=== PATIENT | female | born 1980 | race Caucasian/White ===

== ENCOUNTER 2018-12-31 18:22 | Inpatient (IN) | payer MEDICAID ==
[2018-12-31 21:56] LABS: ADD MAN DIFF? NO
[2018-12-31 21:59] LABS: BASOPHILS % 0.4 % (0.0-2.0); EOSINOPHILS # 0.1 10^3/ul (0.0-0.5); EOSINOPHILS % 0.7 % (0.0-7.0); HEMATOCRIT 41.4 % (37.0-47.0); HEMOGLOBIN 13.4 g/dl (12.0-16.0); LYMPHOCYTES # 1.5 10^3/ul (0.8-2.9); LYMPHOCYTES % 16.6 % (15.0-51.0); MEAN CORPUSCULAR HEMOGLOBIN 30.6 pg (29.0-33.0); MEAN CORPUSCULAR HGB CONC 32.4 g/dl (32.0-37.0); MEAN CORPUSCULAR VOLUME 94.5 fl (82.0-101.0); MEAN PLATELET VOLUME 10.7 fl (7.4-10.4); MONOCYTE # 0.4 10^3/ul (0.3-0.9); MONOCYTES % 4.9 % (0.0-11.0); NEUTROPHILS % 77.1 % (39.0-77.0); PLATELET COUNT 271 10^3/UL (140-415); RED BLOOD COUNT 4.38 10^6/ul (4.20-5.40); RED CELL DISTRIBUTION WIDTH 13.4 % (11.5-14.5)
[2018-12-31 22:06] LABS: ADD UMIC YES; UR ASCORBIC ACID NEGATIVE (NEGATIVE); UR BACTERIA FEW /HPF (NONE SEEN); UR BILIRUBIN (Dip) NEGATIVE (NEGATIVE); UR BLOOD (Dip) 3+ mg/dL (NEGATIVE); UR CLARITY CLEAR (CLEAR); UR COLOR YELLOW (YELLOW); UR GLUCOSE (Dip) NEGATIVE (NEGATIVE); UR KETONES (Dip) NEGATIVE (NEGATIVE); UR LEUKOCYTE ESTERASE (Dip) TRACE Leu/ul (NEGATIVE); UR MUCUS FEW /HPF (NONE SEEN); UR NITRITE (Dip) NEGATIVE (NEGATIVE); UR RBC > 182 /HPF (0-5); UR SPECIFIC GRAVITY (Dip) 1.021 (1.003-1.030); UR SQUAMOUS EPITHELIAL CELL FEW /HPF (FEW); UR TOTAL PROTEIN (Dip) NEGATIVE (NEGATIVE); UR UROBILINOGEN (Dip) 1+ mg/dL (NEGATIVE); UR WBC 5 /HPF (0-5)
[2018-12-31 22:17] LABS: INR 0.93; PROTIME 12.6 Sec (11.9-14.9)
[2018-12-31 22:20] LABS: PARTIAL THROMBOPLASTIN TIME 26.3 Sec (23.0-35.0)
[2019-01-01] MEDS: LACTATED RINGER'S 1,000 ML IV ×3 (03:02→11:13)
[2019-01-01] MEDS: DOXYCYCLINE 100 MG TAB PO (03:03)
[2019-01-01 04:24] LABS: HEMATOCRIT 35.8 % (37.0-47.0); HEMOGLOBIN 11.5 g/dl (12.0-16.0)
[2019-01-01] MEDS ORDERED: MIDAZOLAM 1 MG/ML 2 ML INJ (17:29)
[2019-01-01] MEDS ORDERED: PROPOFOL 20 ML (17:29)
[2019-01-01] MEDS ORDERED: FENTAnyl 50 MCG/ML VIAL (17:29)
[2019-01-01] MEDS ORDERED: CEFAZOLIN 1 GM INJ (17:29)
[2019-01-01] MEDS ORDERED: SEVOFLURANE 15 MIN (17:30)
[2019-01-01] MEDS ORDERED: metroNIDAZOLE 500 MG/NS (PMX) 100 ML IVPB (17:35)
[2019-01-01] MEDS ORDERED: OXYTOCIN 10 UNIT INJ (17:39)
[2019-01-01] MEDS ORDERED: DEXAMETHASONE 4 MG/ML 5 ML INJ (17:40)
[2019-01-01] MEDS ORDERED: KETOROLAC 30 MG INJ (17:40)
[2019-01-01] MEDS ORDERED: ONDANSETRON 4 MG INJ (17:40)
[2019-01-01] MEDS ORDERED: METOCLOPRAMIDE 10 MG INJ (17:40)
[2019-01-01] MEDS ORDERED: METHYLERGONOVINE 0.2 MG INJ (17:41)
[2019-01-01] MEDS ORDERED: SILVER NITRATE SWAB TOP (17:47)
[2019-01-01] MEDS ORDERED: OXYTOCIN 30 UNITS/LR 500 ML IV ×2 (18:20→18:30)
[2019-01-01] MEDS ORDERED: HYDROCODONE/APAP (5/325) TAB PO (18:30)
[2019-01-01] MEDS ORDERED: NACL 0.9% 3 ML SYG IV (18:30)
[2019-01-01] MEDS ORDERED: OXYCODONE/ACETAMINOPHEN (5/325) TAB PO (18:30)
[2019-01-01] MEDS ORDERED: ONDANSETRON 4 MG INJ IV (18:30)
[2019-01-01] MEDS ORDERED: hydrALAzine 20 MG INJ IV (18:30)
[2019-01-01] MEDS ORDERED: FENTAnyl 50 MCG/ML VIAL IV ×2 (18:30)
[2019-01-01] MEDS ORDERED: HYDROmorphONE 1 MG/5 ML IV SYRINGE IV ×2 (18:30)
[2019-01-01] MEDS ORDERED: DIPHENHYDRAMINE 50 MG INJ IV (18:30)
[2019-01-01] MEDS ORDERED: METOCLOPRAMIDE 10 MG INJ IV (18:30)
[2019-01-01] MEDS ORDERED: EPHEDrine SULFATE 50 MG/5 ML SYG IV (18:30)
[2019-01-01] MEDS ORDERED: LABETALOL HCL 20MG INJ IV (18:30)
[2019-01-01] MEDS ORDERED: MEPERIDINE 25 MG INJ IV (18:30)
[2019-01-01] MEDS ORDERED: METHYLERGONOVINE 0.2 MG TAB PO (18:30)
[2019-01-01] MEDS ORDERED: METHYLERGONOVINE 0.2 MG INJ IM (18:30)
[2019-01-01 18:56] LABS: ADD MAN DIFF? NO
[2019-01-01 18:57] LABS: BASOPHILS % 0.2 % (0.0-2.0); EOSINOPHILS % 0.5 % (0.0-7.0); HEMATOCRIT 36.5 % (37.0-47.0); HEMOGLOBIN 11.7 g/dl (12.0-16.0); LYMPHOCYTES # 0.9 10^3/ul (0.8-2.9); MEAN CORPUSCULAR HEMOGLOBIN 30.2 pg (29.0-33.0); MEAN CORPUSCULAR HGB CONC 32.1 g/dl (32.0-37.0); MEAN CORPUSCULAR VOLUME 94.1 fl (82.0-101.0); MEAN PLATELET VOLUME 10.4 fl (7.4-10.4); MONOCYTE # 0.3 10^3/ul (0.3-0.9); MONOCYTES % 4.1 % (0.0-11.0); NEUTROPHIL # 6.9 10^3/ul (1.6-7.5); NEUTROPHILS % 83.7 % (39.0-77.0); PLATELET COUNT 200 10^3/UL (140-415); RED BLOOD COUNT 3.88 10^6/ul (4.20-5.40); RED CELL DISTRIBUTION WIDTH 13.3 % (11.5-14.5)
[2019-01-01 18:57] LABS: WHITE BLOOD COUNT 8.2 10^3/ul (4.8-10.8)
[2019-01-02] MEDS: IBUPROFEN 600 MG TAB PO ×4 (00:26→12:37)
[2019-01-02] MEDS: CLINDAMYCIN 900 MG/D5W (PMX) 50 ML IVPB ×4 (00:27→12:37)
== END 2019-01-02 16:25 | disposition home or self-care (01) | DRG 770 ==
LOC: FTE 18:22 → 2NE 01-01 02:40
PROVIDERS: Obstetrics & Gynecology Obstetrics
PROC: 10D17ZZ Extraction of Products of Conception, Retained, Via Natural or Artificial Opening (ICD-10-PCS; principal; 2019-01-01 13:30)
DX: O03.4 Incomplete spontaneous abortion without complication (principal); N83.202 Unspecified ovarian cyst, left side; N83.201 Unspecified ovarian cyst, right side
CPT/HCPCS: 36415; 76856; 81001; 84702; 85014; 85018; 85025; 85610; 85730; 86850; 86900; 86901; 88305; 99285-25